=== PATIENT | male | born 1965 | race Caucasian/White ===

== ENCOUNTER 2016-11-22 07:42 | Emergency (ER) | payer BC ==
[2016-11-22 07:48] VITALS: BP 147/82
--- NOTE | 2016-11-22 08:04 | UC ---
Back Pain HPI - HPI Summary HPI Summary: The patient comes in today for: 1. Right flank pain: Onset: 7 hours ago. Palliative/provocative: Nothing makes it better or worse. Quality: Sharp Region: Right flank Severity: 03/30 Time: Constant at this time, but came and went before. Associated symptoms: Hematuria: None. Dysuria: None. Urinary frequency: None. History of kidney stones: Present with a history of kidney stone on the right "4 cm" but when questioned again, he said that it may be "4 mm." He has been seen by Dr. Yuan (at his office in [place]). He states that he had "studies" done in [place]--x-rays at [facility] and an ultrasound in Dr. Yuan's office. He states that he was encouraged by DR. Yuan to get lithotripsy, but he declined. He can't remember how he was treated in the past for this. Nausea: Present at times. Pain in the right testicle. * - History of Current Complaint Chief Complaint: UCBackPain Stated Complaint: RT KIDNEY AREA PAIN Time Seen by Provider: 11/22/16 07:57 Hx Obtained From: Patient - Allergies/Home Medications Allergies/Adverse Reactions: Allergies Allergy/AdvReac Type Severity Reaction Status Date / Time No Known Allergies Allergy Verified 11/22/16 07:46 Home Medications: Home Medications Zolpidem TAB* [Ambien*] 11/22/16 [History] PMH/Surg Hx/FS Hx/Imm Hx Previously Healthy: No - Chronic low back pain--sees Dr. Petty. Sarcoid. Cardiovascular History: Hypertension GI/ History: Kidney Stones, Renal Disease Other History Of: Negative For: HIV, Hepatitis B - Surgical History Surgical History: None Surgery Procedure, Year, and Place: bronchostomy. medioscopy - Family History Known Family History: Positive: Hypertension Negative: Cardiac Disease - Social History Alcohol Use: None Substance Use Type: None Smoking Status (MU): Never Smoked Tobacco Review of Systems Constitutional: Negative Skin: Negative Eyes: Negative ENT: Negative Respiratory: Negative Cardiovascular: Negative Gastrointestinal: Negative All Other Systems Reviewed And Are Negative: Yes Physical Exam Triage Information Reviewed: Yes Appearance: Well-Appearing, Well-Nourished, Pain Distress - He takes short breaths associated with his pain. Vital Signs: Initial Vital Signs Temp 99.1 F 11/22/16 07:48 Pulse 99 11/22/16 07:48 Resp 16 11/22/16 07:48 BP 147/82 11/22/16 07:48 Pulse Ox 98 11/22/16 07:48 Vital Signs Reviewed: Yes Eyes: Positive: Conjunctiva Clear. Negative: Discharge ENT: Positive: Hearing grossly normal. Negative: Pharyngeal erythema, Nasal congestion, Nasal drainage, TM bulging, TM dull, TM red, Tonsillar swelling, Tonsillar exudate Dental: Negative: Gross Decay/Caries @, Dental Fracture @ Neck: Positive: Supple, Nontender, No Lymphadenopathy. Negative: Nuchal Rigidity Respiratory: Positive: Lungs clear, No respiratory distress, No accessory muscle use. Negative: Crackles, Wheezing Cardiovascular: Positive: RRR, No Murmur Abdomen Description: Positive: Nontender, No Organomegaly, Soft. Negative: Distended, Guarding Musculoskeletal: Positive: Strength Intact, ROM Intact Neurological: Positive: Alert, Muscle Tone Normal Psychological: Positive: Age Appropriate Behavior, Consolable Skin: Negative: rashes, breakdown UC Physical Exam Vital Signs On Initial Exam: Initial Vitals Temp Pulse Resp BP Pulse Ox 99.1 F 99 16 147/82 98 11/22/16 07:48 11/22/16 07:48 11/22/16 07:48 11/22/16 07:48 11/22/16 07:48 - Genitalia Exam Male Genitalia: Other - The patient has a large right hydrocoele. There is no tenderness to palpation of it. The left testicle is non-tender and the testes is normal in size and shape. Back Pain Course/Dx - Course Course Of Treatment: Patient was told that we don't have CT scan here to document the status of his right renal stone. He was told that I can give him pain control to tie him over until he can get in contact with DR. Yuan. He is to do that MER. - Differential Dx/Diagnosis Provider Diagnoses: Right kidney stone. Discharge - Discharge Plan Condition: Stable Disposition: HOME Patient Education Materials: Kidney Stones (ED), Renal Colic (ED) Referrals: Saúl Franco MD [Primary Care Provider] - As Soon As Possible (Contact your primary care provider or your urologist tomorrow as soon as you can for an appointment as soon as you can to address your kidney stone and your pain treatment.)
[2016-11-22] MEDS ORDERED: Ondansetron ODT TAB* 4 MG SL ONE (08:13)
[2016-11-22] MEDS ORDERED: Ketorolac INJ* 60 MG/2 ML VIAL IM ONE (08:14)
[2016-11-22] MEDS ORDERED: HYDROmorphone TAB* 2 MG PO PRN (08:15)
[2016-11-22] MEDS ORDERED: Ondansetron TAB* 4 MG PO ONE (08:21)
== END 2016-11-22 08:42 | disposition home or self-care (01) ==
LOC: UCEAST 07:42
DX: N20.0 Calculus of kidney (principal); Z87.442 Personal history of urinary calculi; N28.9 Disorder of kidney and ureter, unspecified; I10 Essential (primary) hypertension
CPT/HCPCS: 96372; 99212; A9270-GY; G0463; J1885